=== PATIENT | female | born 1975 | race African-American/Black ===

== ENCOUNTER 2019-10-12 12:31 | Outpatient (CLI) | payer OTHER, SELFPAY ==
[2019-10-12 12:57] LABS: Hematocrit 38.1 % (37.0-47.0); Hemoglobin 12.8 g/dL (12.0-15.0); Mean Corpuscular HGB Conc 33.6 g/dl (32-36); Mean Corpuscular Hemoglobin 32.3 pg (26-34); Mean Corpuscular Volume 96.2 fl (80-100); Mean Platelet Volume 12.7 fl (7.4-10.4); Platelet Count Result 143 k/mm3 (150-375); Red Blood Count 3.96 M/mm3 (4.2-5.4); White Blood Count 11.3 K/mm3 (4.5-10.0)
[2019-10-12 13:13] LABS: Alanine Aminotransferase 19 U/L (4-35); Albumin Level 4.7 g/dL (3.5-5.1); Alkaline Phosphatase 64 U/L (38-126); Aspartate Amino Transferase 27 U/L (14-36); Bilirubin,Total 0.3 mg/dL (0.2-1.3); Blood Urea Nitrogen 15 mg/dL (7-17); Calcium 9.5 mg/dL (8.4-10.2); Carbon Dioxide 24 mmol/L (22-30); Chloride 109 mmol/L (98-107); Estimated Glomerular Filt Rate > 60; Glucose 93 mg/dL (65-105); Potassium 4.2 mmol/L (3.4-5.0); Sodium 140 mmol/L (137-145)
[2019-10-12 13:44] LABS: Thyroid Stimulating Hormone 0.487 uIU/mL (0.465-4.680)
[2019-10-12 13:48] LABS: Erythrocyte Sedimentation Rate 27 mm/hr (0-20)
[2019-10-12 14:01] LABS: Monoscreen Negative (Negative); Negative Monotest Control Negative (Negative); Positive Monotest Control Positive (Positive)
== END 2019-10-12 12:32 | disposition home or self-care (01) ==
PROVIDERS: PCP Physician Assistant; Visit Provider Physician Assistant
DX: D69.6 Thrombocytopenia, unspecified (principal); E83.52 Hypercalcemia; R70.0 Elevated erythrocyte sedimentation rate; E06.3 Autoimmune thyroiditis; R59.1 Generalized enlarged lymph nodes
CPT/HCPCS: 36415; 80053; 84439; 84443; 85027; 85055; 85652; 86308

== ENCOUNTER 2020-02-23 13:00 | Outpatient (CLI) | payer OTHER, SELFPAY ==
[2020-02-23 14:09] LABS: Thyroid Stimulating Hormone 0.333 uIU/mL (0.465-4.680)
[2020-02-28 10:07] LABS: Triiodothyronine T3 Free 2.7 pg/mL (2.3-4.2)
[2020-02-28 13:51] LABS: Thyroid Stimulating Immunoglob <89 % baseline (<140)
== END 2020-02-23 13:01 | disposition home or self-care (01) ==
LOC: ANHLAB 13:02
PROVIDERS: PCP Physician Assistant; Visit Provider Internal Medicine Endocrinology, Diabetes & Metabolism
DX: E04.9 Nontoxic goiter, unspecified (principal)
CPT/HCPCS: 36415; 84439; 84443; 84445; 84481